=== PATIENT | female | born 1955 | race Caucasian/White ===

== ENCOUNTER 2020-05-30 14:14 | Inpatient (IN) | payer MEDICAID ==
[2020-05-30] MEDS ORDERED: Sodium Chloride 0.9% 1,000 ML IV SCH ×2 (15:50→16:15)
[2020-05-30] MEDS ORDERED: Potassium Chloride 20 MEQ in Premix Bag 1 BAG IV ONE ×3 (16:00→22:00)
[2020-05-30] MEDS: Nicotine 14 MG/24 Hr Patch TRDERM SCH (16:42)
[2020-05-30] MEDS ORDERED: Sodium Chloride 0.9% with KCl 1,000 ML IV SCH ×2 (16:50→23:50)
[2020-05-30] MEDS ORDERED: Sodium Chloride 0.9% 250 ML IV SCH (18:30)
[2020-05-30] MEDS: atorvaSTATin 40 MG Tab PO SCH (20:11)
[2020-05-31] MEDS: Multivitamins with Minerals/Iron/Folic Acid/Lycopene Tab PO SCH (08:25)
[2020-05-31] MEDS: Omeprazole 20 MG Cap.CR PO SCH (08:25)
[2020-05-31 08:27] LABS: ANION GAP 8.7 mmol/L (5-15)
--- NOTE | 2020-05-31 08:43 | PCM.PN ---
- General Info Date of Service: 05/31/20 Functional Status: Reports: Pain Controlled, Tolerating Diet, Urinating, New Symptoms. Denies: Ambulating - Review of Systems General: Reports: Weakness, Fatigue. Denies: Malaise, Chills, Night Sweats HEENT: Reports: No Symptoms Pulmonary: Denies: Shortness of Breath, Cough, Sputum Cardiovascular: Denies: Chest Pain, Orthopnea, PND Gastrointestinal: Denies: Abdominal Pain, Constipation, Decreased Appetite Genitourinary: Reports: Frequency. Denies: Dysuria, Incontinence, Retention, Flank Pain Musculoskeletal: Reports: No Symptoms Skin: Reports: Bruising Neurological: Reports: Pre-Existing Deficit, Difficulty Walking, Weakness. Denies: Confusion, Numbness, Tingling, Trouble Speaking Psychiatric: Denies: Confusion - Patient Data Vitals - Most Recent: Last Vital Signs Temp 98.1 F 05/31/20 06:04 Pulse 76 05/31/20 06:04 Resp 18 05/31/20 06:04 BP 106/66 05/31/20 06:04 Pulse Ox 96 05/31/20 06:04 Weight - Most Recent: 150 lb 9.211 oz I&O - Last 24 Hours: Intake & Output 05/30/20 05/31/20 05/31/20 22:59 06:59 14:59 Intake Total 1640 696 Output Total 600 800 Balance 1040 -104 Lab Results Last 24 Hours: Laboratory Results - last 24 hr 05/30/20 05/30/20 05/30/20 Range/Units 14:05 15:23 15:23 WBC (5.00-10.00) 10^3/uL RBC (3.80-5.50) 10^6/uL Hgb (12.0-16.0) g/dL Hct (37.0-47.0) % MCV (82.0-92.0) fL MCH (27.0-31.0) pg MCHC (32.0-36.0) g/dL RDW (11.5-14.5) % Plt Count (150-400) 10^3/uL MPV (7.4-10.4) fL Immature Gran % (Auto) (0.0-5.0) % Neut % (Auto) (50.0-70.0) % Lymph % (Auto) (20.0-40.0) % [place] % (Auto) (2.0-8.0) % Eos % (Auto) (1.0-3.0) % Baso % (Auto) (0.0-1.0) % Neut # (Auto) (2.50-7.00) 10^3/uL Lymph # (Auto) (1.00-4.00) 10^3/uL [place] # (Auto) (0.10-0.80) 10^3/uL Eos # (Auto) (0.10-0.30) 10^3/uL Baso # (Auto) (0.00-0.10) 10^3/uL Immature Gran # (Auto) (0.00-0.50) 10^3/uL Sodium (136-145) mmol/L Potassium (3.3-5.3) mmol/L Chloride (98-115) mmol/L Carbon Dioxide (21.0-32.0) mmol/L Anion Gap (5-15) mmol/L BUN (6-25) mg/dL Creatinine (0.51-1.17) mg/dL Est Cr Clr Drug Dosing mL/min Estimated GFR (MDRD) mL/min Glucose (75 - 99) mg/dL Lactic Acid (0.4-2.0) mmol/L Calcium (8.7-10.3) mg/dL Phosphorus (2.6-4.7) mg/dL Magnesium (1.8-2.4) mg/dL Total Bilirubin (0.2-1.0) mg/dL AST (15-37) U/L ALT (12-78) U/L Alkaline Phosphatase (46-116) IU/L Troponin I 0.05 (0.00-0.070) ng/mL Total Protein (6.4-8.2) g/dL Albumin (3.00-4.80) g/dL TSH, Ultra Sensitive 0.890 (0.340-4.820) uIU/mL Ur Random Sodium (40.0-220.0) mmol/L SARS CoV-2 RNA Rapid [facility] Negative (NEGATIVE) 05/30/20 05/30/20 05/31/20 Range/Units 15:57 17:40 07:58 WBC 5.94 (5.00-10.00) 10^3/uL RBC 3.90 (3.80-5.50) 10^6/uL Hgb 12.8 (12.0-16.0) g/dL Hct 36.7 L (37.0-47.0) % MCV 94.1 H (82.0-92.0) fL MCH 32.8 H (27.0-31.0) pg MCHC 34.9 (32.0-36.0) g/dL RDW 13.3 (11.5-14.5) % Plt Count 259 (150-400) 10^3/uL MPV 8.8 (7.4-10.4) fL Immature Gran % (Auto) 0.3 (0.0-5.0) % Neut % (Auto) 58.2 (50.0-70.0) % Lymph % (Auto) 22.7 (20.0-40.0) % [place] % (Auto) 18.0 H (2.0-8.0) % Eos % (Auto) 0.5 L (1.0-3.0) % Baso % (Auto) 0.3 (0.0-1.0) % Neut # (Auto) 3.45 (2.50-7.00) 10^3/uL Lymph # (Auto) 1.35 (1.00-4.00) 10^3/uL [place] # (Auto) 1.07 H (0.10-0.80) 10^3/uL Eos # (Auto) 0.03 L (0.10-0.30) 10^3/uL Baso # (Auto) 0.02 (0.00-0.10) 10^3/uL Immature Gran # (Auto) 0.02 (0.00-0.50) 10^3/uL Sodium (136-145) mmol/L Potassium (3.3-5.3) mmol/L Chloride (98-115) mmol/L Carbon Dioxide (21.0-32.0) mmol/L Anion Gap (5-15) mmol/L BUN (6-25) mg/dL Creatinine (0.51-1.17) mg/dL Est Cr Clr Drug Dosing mL/min Estimated GFR (MDRD) mL/min Glucose (75 - 99) mg/dL Lactic Acid 1.4 (0.4-2.0) mmol/L Calcium (8.7-10.3) mg/dL Phosphorus (2.6-4.7) mg/dL Magnesium (1.8-2.4) mg/dL Total Bilirubin (0.2-1.0) mg/dL AST (15-37) U/L ALT (12-78) U/L Alkaline Phosphatase (46-116) IU/L Troponin I (0.00-0.070) ng/mL Total Protein (6.4-8.2) g/dL Albumin (3.00-4.80) g/dL TSH, Ultra Sensitive (0.340-4.820) uIU/mL Ur Random Sodium 40.0 (40.0-220.0) mmol/L SARS CoV-2 RNA Rapid FAITH (NEGATIVE) 05/31/20 Range/Units 07:58 WBC (5.00-10.00) 10^3/uL RBC (3.80-5.50) 10^6/uL Hgb (12.0-16.0) g/dL Hct (37.0-47.0) % MCV (82.0-92.0) fL MCH (27.0-31.0) pg MCHC (32.0-36.0) g/dL RDW (11.5-14.5) % Plt Count (150-400) 10^3/uL MPV (7.4-10.4) fL Immature Gran % (Auto) (0.0-5.0) % Neut % (Auto) (50.0-70.0) % Lymph % (Auto) (20.0-40.0) % [place] % (Auto) (2.0-8.0) % Eos % (Auto) (1.0-3.0) % Baso % (Auto) (0.0-1.0) % Neut # (Auto) (2.50-7.00) 10^3/uL Lymph # (Auto) (1.00-4.00) 10^3/uL [place] # (Auto) (0.10-0.80) 10^3/uL Eos # (Auto) (0.10-0.30) 10^3/uL Baso # (Auto) (0.00-0.10) 10^3/uL Immature Gran # (Auto) (0.00-0.50) 10^3/uL Sodium 127 L (136-145) mmol/L Potassium 3.6 (3.3-5.3) mmol/L Chloride 91 L (98-115) mmol/L Carbon Dioxide 30.9 (21.0-32.0) mmol/L Anion Gap 8.7 (5-15) mmol/L BUN 22 (6-25) mg/dL Creatinine 1.25 H (0.51-1.17) mg/dL Est Cr Clr Drug Dosing 38.11 mL/min Estimated GFR (MDRD) 43 mL/min Glucose 119 H (75 - 99) mg/dL Lactic Acid (0.4-2.0) mmol/L Calcium 8.8 (8.7-10.3) mg/dL Phosphorus 1.5 L (2.6-4.7) mg/dL Magnesium 1.8 (1.8-2.4) mg/dL Total Bilirubin 0.6 (0.2-1.0) mg/dL AST 32 (15-37) U/L ALT 20 (12-78) U/L Alkaline Phosphatase 45 L (46-116) IU/L Troponin I (0.00-0.070) ng/mL Total Protein 6.6 (6.4-8.2) g/dL Albumin 3.15 (3.00-4.80) g/dL TSH, Ultra Sensitive (0.340-4.820) uIU/mL Ur Random Sodium (40.0-220.0) mmol/L SARS CoV-2 RNA Rapid FAITH (NEGATIVE) Med Orders - Current: Current Medications Acetaminophen (Tylenol Extra Strength) 500 mg PO Q4H PRN PRN Reason: Pain Atorvastatin Calcium (Lipitor) 40 mg PO BEDTIME [facility] Last Admin: 05/30/20 20:11 Dose: 40 mg Documented by: Sodium Chloride (Normal Saline) 1,000 mls @ 500 mls/hr IV .BOLUS [facility] Last Admin: 05/30/20 16:07 Dose: 500 mls/hr Documented by: Potassium Chloride/Sodium Chloride (Normal Saline With 40 Meq Kcl) 1,000 mls @ 100 mls/hr IV ASDIRECTED [facility] Last Admin: 12/08/20 23:29 Dose: 100 mls/hr Documented by: Sodium Chloride (Normal Saline) 250 mls @ 50 mls/hr IV ASDIRECTED [facility] Last Admin: 05/30/20 18:55 Dose: 50 mls/hr Documented by: Multivitamins/Minerals (Centrum) 1 tab PO DAILY [facility] Last Admin: 05/31/20 08:25 Dose: 1 tab Documented by: Nicotine (Habitrol) 14 mg TRDERM DAILY@1600 [facility] Last Admin: 05/30/20 16:42 Dose: 14 mg Documented by: Omeprazole (Omeprazole) 20 mg PO DAILY [facility] Last Admin: 05/31/20 08:25 Dose: 20 mg Documented by: Discontinued Medications Sodium Chloride (Normal Saline) 1,000 mls @ 500 mls/hr IV .BOLUS [facility] Potassium Chloride/Sodium Chloride (Normal Saline With 40 Meq Kcl) 1,000 mls @ 100 mls/hr IV ASDIRECTED [facility] Potassium Chloride 20 meq/ (Premix) 100 mls @ 50 mls/hr IV ONETIME ONE Stop: 05/30/20 17:59 Last Admin: 05/30/20 16:07 Dose: 50 mls/hr Documented by: Potassium Chloride 20 meq/ (Premix) 100 mls @ 50 mls/hr IV ONETIME ONE Stop: 05/30/20 20:59 Last Admin: 05/30/20 18:54 Dose: 50 mls/hr Documented by: Potassium Chloride 20 meq/ (Premix) 100 mls @ 50 mls/hr IV ONETIME ONE Stop: 05/30/20 23:59 Last Admin: 05/30/20 21:17 Dose: 50 mls/hr Documented by: - Exam Quality Assessment: No: Supplemental Oxygen General: Alert, Oriented, Cooperative HEENT: Pupils Equal Neck: Supple Lungs: Clear to Auscultation, Normal Respiratory Effort Cardiovascular: Regular Rate, Regular Rhythm GI/Abdominal Exam: Soft, No Distention (Female) Exam: Deferred Back Exam: No: CVA Tenderness (L), CVA Tenderness (R) Extremities: No Pedal Edema, Normal Capillary Refill Peripheral Pulses: 2+: Radial (L), Radial (R) Skin: Dry Neurological: No New Focal Deficit, Normal Speech, Normal Tone Psy/Mental Status: Alert, Normal Mood, Labile Mood Sepsis Event Note - Evaluation Sepsis Screening Result: No Definite Risk - Focused Exam Vital Signs: Vital Signs Temp Pulse Resp BP Pulse Ox 05/31/20 06:04 98.1 F 76 18 106/66 96 05/31/20 02:00 97.8 F 58 L 20 90/56 L 97 05/30/20 22:20 98.9 F 61 18 82/46 L 98 - Problem List Review Problem List Initiated/Reviewed/Updated: Yes - Plan Plan:: HPI summary: Pat is a 64-year-old female that was admitted yesterday into telemetry status due to significant electrolyte disturbance and weakness. This author had seen Sheila 2 days ago when she came in from [facility] for UTI and was placed on Bactrim at that time she felt weak some gait disturbance in which electrolytes demonstrated the following day of sodium 122 potassium 2.4 prompting further evaluation. She was seen and evaluated yesterday May 30 with significant hypokalemia, hyponatremia, dehydration along with weakness. Patient does have a history of EtOH abuse Primary hospital problems --Hypokalemia, much improved, continue to replete, change to PO --Hyponatremia, hypotonic, suspect hypovolemia induced --Hypophosphatemia, assess vitamin D --UTI, rocephin --Dehydration, improving, reduce IV fluids and change to isotonic saline, encourage p.o. fluids today, BP improving --Tobacco/EtOH dependency, non-contemplation phase of change, NRT Chronic problems T2DM, holding Metformin secondary to HAFSA, dehydration, acute illness Hypertension, holding thiazide diuretic and ACEI due to dehydration, hypotension, recent HAFSA, dehydration Hyperlipidemia, statin Depression, stable, holding SSRI 2/2 QTc 574 ms GERD, PPI Disposition/overall plan --Patient meets ongoing inpatient qualification due to medication adjustment, IV fluids,, monitoring --DVT prophylaxis, LMWH until ambulation, TEDS --DC tele --Rocephin for UTI --Assess vitamin D, --Reduce IV fluids --PT consultation --Add MVI, folate --Influenza vaccination
[2020-05-31] MEDS: Sodium Chloride 0.9% 1,000 ML IV SCH (09:20)
[2020-05-31] MEDS: cefTRIAXone 1 GM Vial IVPUSH SCH (09:25)
[2020-05-31] MEDS: Potassium Bicarbonate 25 MEQ Tab.EFF PO SCH (10:08)
[2020-05-31] MEDS: Enoxaparin 40 MG/0.4 ML Syringe SUBCUT SCH (10:37)
[2020-05-31] MEDS: Nicotine 14 MG/24 Hr Patch TRDERM SCH (15:43)
[2020-05-31] MEDS ORDERED: Potassium Chloride 20 MEQ Tab.ER PO ONE (17:00)
[2020-05-31] MEDS: atorvaSTATin 40 MG Tab PO SCH (20:09)
[2020-05-31] MEDS: Acetaminophen 500 MG Tab PO PRN (21:38)
[2020-06-01] MEDS: Sodium Chloride 0.9% 1,000 ML IV SCH (00:32)
[2020-06-01 08:06] LABS: ANION GAP 9.5 mmol/L (5-15); CHLORIDE,CL 100 mmol/L (98-115); SODIUM,NA 134 mmol/L (136-145)
[2020-06-01] MEDS: Multivitamins with Minerals/Iron/Folic Acid/Lycopene Tab PO SCH (08:17)
[2020-06-01] MEDS: Omeprazole 20 MG Cap.CR PO SCH (08:17)
[2020-06-01] MEDS: cefTRIAXone 1 GM Vial IVPUSH SCH (08:18)
[2020-06-01] MEDS: Potassium Bicarbonate 25 MEQ Tab.EFF PO SCH (08:18)
[2020-06-01] MEDS: Enoxaparin 40 MG/0.4 ML Syringe SUBCUT SCH (10:02)
--- NOTE | 2020-06-01 10:48 | PCM.PN ---
- General Info Date of Service: 06/01/20 Functional Status: Reports: Pain Controlled, Tolerating Diet, Ambulating (Doing better with ambulation minimal assistance only now) - Review of Systems General: Denies: Weakness, Fatigue, Malaise HEENT: Reports: No Symptoms Pulmonary: Reports: Cough. Denies: Sputum Cardiovascular: Reports: No Symptoms Gastrointestinal: Reports: No Symptoms Genitourinary: Denies: Frequency, Burning, Pain, Retention Musculoskeletal: Reports: No Symptoms Skin: Denies: Dryness Neurological: Reports: Difficulty Walking, Gait Disturbance Psychiatric: Reports: No Symptoms - Patient Data Vitals - Most Recent: Last Vital Signs Temp 98.4 F 06/01/20 06:30 Pulse 60 06/01/20 06:30 Resp 20 06/01/20 06:30 BP 104/61 06/01/20 06:30 Pulse Ox 96 06/01/20 06:30 Weight - Most Recent: 150 lb 9.211 oz I&O - Last 24 Hours: Intake & Output 05/31/20 06/01/20 06/01/20 22:59 06:59 14:59 Intake Total 1023 662 Output Total 400 Balance 1023 262 Lab Results Last 24 Hours: Laboratory Results - last 24 hr 05/30/20 05/31/20 05/31/20 Range/Units 17:25 07:58 07:58 Sodium (136-145) mmol/L Potassium (3.3-5.3) mmol/L Chloride (98-115) mmol/L Carbon Dioxide (21.0-32.0) mmol/L Anion Gap (5-15) mmol/L BUN (6-25) mg/dL Creatinine (0.51-1.17) mg/dL Est Cr Clr Drug Dosing mL/min Estimated GFR (MDRD) mL/min Glucose (75 - 99) mg/dL Serum Osmolality 269 L (275-295) mosm/kg Calcium (8.7-10.3) mg/dL Vitamin D 25-Hydroxy 14 L (30-100) ng/mL Urine Osmolality 259 L (300-900) mosm/kg 06/01/20 Range/Units 07:38 Sodium 134 L (136-145) mmol/L Potassium 3.6 (3.3-5.3) mmol/L Chloride 100 (98-115) mmol/L Carbon Dioxide 28.1 (21.0-32.0) mmol/L Anion Gap 9.5 (5-15) mmol/L BUN 15 (6-25) mg/dL Creatinine 0.82 (0.51-1.17) mg/dL Est Cr Clr Drug Dosing 58.09 mL/min Estimated GFR (MDRD) > 60 mL/min Glucose 109 H (75 - 99) mg/dL Serum Osmolality (275-295) mosm/kg Calcium 7.5 L (8.7-10.3) mg/dL Vitamin D 25-Hydroxy (30-100) ng/mL Urine Osmolality (300-900) mosm/kg Med Orders - Current: Current Medications Acetaminophen (Tylenol Extra Strength) 500 mg PO Q4H PRN PRN Reason: Pain Last Admin: 05/31/20 21:38 Dose: 500 mg Documented by: Atorvastatin Calcium (Lipitor) 40 mg PO BEDTIME [facility] Last Admin: 05/31/20 20:09 Dose: 40 mg Documented by: Ceftriaxone Sodium (Rocephin) 1 gm IVPUSH Q24H [facility] Last Admin: 06/01/20 08:18 Dose: 1 gm Documented by: Enoxaparin Sodium (Lovenox) 40 mg SUBCUT Q24H [facility] Last Admin: 06/01/20 10:02 Dose: 40 mg Documented by: Sodium Chloride (Normal Saline) 1,000 mls @ 75 mls/hr IV ASDIRECTED [facility] Last Admin: 06/01/20 00:32 Dose: 75 mls/hr Documented by: Multivitamins/Minerals (Centrum) 1 tab PO DAILY [facility] Last Admin: 06/01/20 08:17 Dose: 1 tab Documented by: Nicotine (Habitrol) 14 mg TRDERM DAILY@1600 [facility] Last Admin: 05/31/20 15:43 Dose: 14 mg Documented by: Omeprazole (Omeprazole) 20 mg PO DAILY [facility] Last Admin: 06/01/20 08:17 Dose: 20 mg Documented by: Potassium Bicarbonate (Klor-Con Ef) 25 meq PO DAILY [facility] Last Admin: 06/01/20 08:18 Dose: 25 meq Documented by: Discontinued Medications Sodium Chloride (Normal Saline) 1,000 mls @ 500 mls/hr IV .BOLUS [facility] Potassium Chloride/Sodium Chloride (Normal Saline With 40 Meq Kcl) 1,000 mls @ 100 mls/hr IV ASDIRECTED [facility] Potassium Chloride 20 meq/ (Premix) 100 mls @ 50 mls/hr IV ONETIME ONE Stop: 05/30/20 17:59 Last Admin: 05/30/20 16:07 Dose: 50 mls/hr Documented by: Potassium Chloride 20 meq/ (Premix) 100 mls @ 50 mls/hr IV ONETIME ONE Stop: 05/30/20 20:59 Last Admin: 05/30/20 18:54 Dose: 50 mls/hr Documented by: Potassium Chloride 20 meq/ (Premix) 100 mls @ 50 mls/hr IV ONETIME ONE Stop: 05/30/20 23:59 Last Admin: 05/30/20 21:17 Dose: 50 mls/hr Documented by: Sodium Chloride (Normal Saline) 1,000 mls @ 500 mls/hr IV .BOLUS [facility] Last Admin: 05/30/20 16:07 Dose: 500 mls/hr Documented by: Potassium Chloride/Sodium Chloride (Normal Saline With 40 Meq Kcl) 1,000 mls @ 100 mls/hr IV ASDIRECTED [facility] Last Admin: 05/30/20 23:29 Dose: 100 mls/hr Documented by: Sodium Chloride (Normal Saline) 250 mls @ 50 mls/hr IV ASDIRECTED [facility] Last Admin: 05/30/20 18:55 Dose: 50 mls/hr Documented by: Potassium Chloride (Klor-Con M20) 40 meq PO ONETIME ONE Stop: 05/31/20 17:01 Last Admin: 05/31/20 16:50 Dose: 40 meq Documented by: - Exam Quality Assessment: DVT Prophylaxis. No: Supplemental Oxygen General: Alert, Oriented Neck: Supple Lungs: Clear to Auscultation, Normal Respiratory Effort Cardiovascular: Regular Rate, Regular Rhythm GI/Abdominal Exam: Soft, Non-Tender Back Exam: No: CVA Tenderness (L), CVA Tenderness (R) Extremities: No Pedal Edema Peripheral Pulses: 2+: Radial (R), Femoral (L) Skin: Warm, Dry, Intact Neurological: Normal Speech, Normal Tone, Sensation Intact Sepsis Event Note - Evaluation Sepsis Screening Result: No Definite Risk - Focused Exam Vital Signs: Vital Signs Temp Pulse Resp BP Pulse Ox 06/01/20 06:30 98.4 F 60 20 104/61 96 05/31/20 23:00 98.2 F 65 16 95/53 L 97 - Problem List Review Problem List Initiated/Reviewed/Updated: Yes - My Orders Last 24 Hours: My Active Orders 05/31/20 09:45 Potassium Bicarbonate [Klor-Con EF] 25 meq PO DAILY 05/31/20 10:30 Enoxaparin [Lovenox] 40 mg SUBCUT Q24H - Plan Plan:: HPI summary: Pat is a 64-year-old female that was admitted yesterday into telemetry status due to significant electrolyte disturbance and weakness. This author had seen Sheila 2 days ago when she came in from [id number] for UTI and was placed on Bactrim at that time she felt weak some gait disturbance in which electrolytes demonstrated the following day of sodium 122 potassium 2.4 prompting further evaluation. She was seen and evaluated yesterday May 30 with significant hypokalemia, hyponatremia, dehydration along with weakness. Patient does have a history of EtOH abuse Hospital course 06/01/2020; is feeling much better, no fevers, low but improving blood pressure, euvolemic, potassium improved to normal parameters due to improved diet, along with oral and IV supplementation, phosphorus levels low--likely due to very low vitamin D levels, suspect lower GI malabsorption due to EtOH abuse. No infection, sodium levels vastly improved without mental status sequela Primary hospital problems --Vitamin D deficiency, oral supplementation --Hypokalemia, normalized, gentle p.o. supplementation for now --Hyponatremia, hypotonic, improved--suspect hypovolemia induced --Hypophosphatemia, likely related to vitamin D deficiency --UTI, being symptoms, will continue with rocephin --Dehydration, resolved, saline lock IV, BP improving --Tobacco/EtOH dependency, non-contemplation phase of change, NRT Chronic problems T2DM, holding Metformin secondary to HAFSA, dehydration, acute illness Hypertension, holding thiazide diuretic and ACEI due to dehydration, hypotension, recent HAFSA, dehydration Hyperlipidemia, statin Depression, stable, holding SSRI 2/2 QTc 574 ms GERD, PPI Disposition/overall plan --Patient meets ongoing inpatient qualification due to further monitoring, PT evaluation, weekly home discharge tomorrow --DVT prophylaxis, LMWH until ambulation, TEDS --Cont Rocephin for UTI --Add vitamin D with calcium --Saline lock IV --Added MVI, folate --Influenza vaccination, today
[2020-06-01] MEDS: Calcium Carbonate 600 MG Tab PO SCH ×2 (11:35→17:14)
[2020-06-01] MEDS: Nicotine 14 MG/24 Hr Patch TRDERM SCH (15:10)
[2020-06-01] MEDS: Acetaminophen 500 MG Tab PO PRN ×2 (15:13→20:25)
[2020-06-01] MEDS: atorvaSTATin 40 MG Tab PO SCH (20:24)
[2020-06-02] MEDS: Acetaminophen 500 MG Tab PO PRN (06:27)
[2020-06-02] MEDS: Multivitamins with Minerals/Iron/Folic Acid/Lycopene Tab PO SCH (08:29)
[2020-06-02] MEDS: Potassium Bicarbonate 25 MEQ Tab.EFF PO SCH (08:29)
[2020-06-02] MEDS: cefTRIAXone 1 GM Vial IVPUSH SCH (08:29)
[2020-06-02] MEDS: Calcium Carbonate 600 MG Tab PO SCH ×2 (08:30→11:02)
[2020-06-02] MEDS: Omeprazole 20 MG Cap.CR PO SCH (08:30)
[2020-06-02] MEDS: Enoxaparin 40 MG/0.4 ML Syringe SUBCUT SCH (10:09)
--- NOTE | 2020-06-02 11:24 | PCM.DCSUM1 ---
Discharge Summary - Hospital Course Diagnosis: Stroke: No - Discharge Data Discharge Date: 06/02/20 Discharge Disposition: Home, Self-Care 01 Condition: Good - Referral to Home Health Primary Care Physician: Mariel Chakraborty PA-C - Patient Summary/Data Consults: Consultations 05/31/20 09:04 PT Evaluation and Treatment [CONS] Routine - Patient Instructions Diet: Usual Diet as Tolerated, Drink 8-10+ Glasses/Day Driving: Do Not Drive Showering/Bathing: May Shower Notify Provider of: Fever, Nausea and/or Vomiting Other/Special Instructions: Report any further weakness. Abstain from alcohol. Take your vitamin D and calcium as directed. Stay well-hydrated. Not take your blood pressure medicines until follow-up (chlorothiazide, quinapril). Your potassium as directed normally - Discharge Plan *PRESCRIPTION DRUG MONITORING PROGRAM REVIEWED*: Not Applicable *COPY OF PRESCRIPTION DRUG MONITORING REPORT IN PATIENT BASILIO: Not Applicable Prescriptions/Med Rec: Calcium Carbonate 600 mg PO TIDMEALS #90 tablet Home Medications: Home Meds Acetaminophen [Tylenol Extra Strength] 500 mg PO Q4H PRN 05/30/20 [History] Citalopram [Citalopram HBr] 20 mg PO DAILY 05/30/20 [History] FA/Lycopene/Lut/MV,Ca,Iron,Min [Centrum] 1 tab PO DAILY 05/30/20 [History] Omeprazole 20 mg PO DAILY 05/30/20 [History] Omeprazole 20 mg PO DAILY PRN 05/30/20 [History] Potassium Chloride [K-Tab ER] 10 meq PO BID 05/30/20 [History] Quinapril/Hydrochlorothiazide [Quinapril-Hctz 10-12.5 mg Tab] 1 each PO DAILY 05/30/20 [History] atorvaSTATin [Lipitor] 40 mg PO BEDTIME 05/30/20 [History] hydroCHLOROthiazide [Hydrochlorothiazide] 12.5 mg PO DAILY 05/30/20 [History] metFORMIN [Glucophage XR] 500 mg PO DAILY 05/30/20 [History] Calcium Carbonate 600 mg PO TIDMEALS #90 tablet 06/02/20 [Rx] Referrals: Mariel Chakraborty PA-C [Primary Care Provider] - (next week anytime) - Discharge Summary/Plan Comment DC Time >30 min.: Yes Discharge Summary/Plan Comment: Final Dx --Vitamin D deficiency, suspect lower GI malabsorption due to EtOH abuse. --Hypokalemia, normalized, suspect lower GI malabsorption due to EtOH abuse. --Hyponatremia, hypotonic, improved --Hypophosphatemia, related to vitamin D deficiency --UTI, resolved --Dehydration, resolved, --Tobacco/EtOH dependency, Chronic problems T2DM, holding Metformin secondary to HAFSA, dehydration, acute illness Hypertension, holding thiazide diuretic and ACEI due to dehydration, hypotension, recent HAFSA, dehydration Hyperlipidemia, statin Depression, stable, holding SSRI 2/ QTc 574 ms GERD, PPI HPI summary: Pat is a 64-year-old female that was admitted yesterday into telemetry status due to significant electrolyte disturbance and weakness. This author had seen Sheila 2 days ago when she came in from [facility] for UTI and was placed on Bactrim at that time she felt weak some gait disturbance in which electrolytes demonstrated the following day of sodium 122 potassium 2.4 prompting further evaluation. She was seen and evaluated yesterday May 30 with significant hypokalemia, hyponatremia, dehydration along with weakness. Patient does have a history of EtOH abuse Hospital course 06/01/2020; is feeling much better, no fevers, low but improving blood pressure, euvolemic, potassium improved to normal parameters due to improved diet, along with oral and IV supplementation, phosphorus levels low--likely due to very low vitamin D levels, suspect lower GI malabsorption due to EtOH abuse. No infection, sodium levels vastly improved without mental status sequela Medication changes/adjustments upon discharge Vitamin D 50,000 IU every Friday x2 months newly added Calcium carbonate 600 mg p.o. 3 times daily newly added Holding SSRI due to prolongation QT Disposition --DC to home --F/u with up with MAYUR Lau 09 June at 12:30 Patient instructions upon discharge --Report any further weakness --Abstain from alcohol --Take your vitamin D and calcium as directed --Stay well-hydrated --Not take your blood pressure medicines until follow-up (chlorothiazide, quinapril) --Take your potassium as directed normally Recommendations upon follow-up --holding SSRI due to QTc 574 ms, please address --Re-addressing EtOH abstinence --CMP --Flu Shot - General Info Functional Status: Reports: Pain Controlled - Review of Systems General: Denies: Fever, Weakness, Fatigue, Malaise, Chills HEENT: Reports: No Symptoms Pulmonary: Reports: No Symptoms Cardiovascular: Reports: No Symptoms Gastrointestinal: Reports: No Symptoms Genitourinary: Reports: No Symptoms Musculoskeletal: Reports: Shoulder Pain (Shoulder pain past 2 days) Skin: Denies: Bruising, Pruritis Neurological: Denies: Confusion, Dizziness, Weakness Psychiatric: Reports: No Symptoms - Patient Data Vitals - Most Recent: Last Vital Signs Temp 97.9 F 06/02/20 06:17 Pulse 63 06/02/20 06:17 Resp 16 06/02/20 06:17 BP 149/63 H 06/02/20 06:17 Pulse Ox 98 06/02/20 06:17 Weight - Most Recent: 150 lb 9.211 oz I&O - Last 24 hours: Intake & Output 06/01/20 06/02/20 06/02/20 22:59 06:59 14:59 Intake Total 240 200 Balance 240 200 Med Orders - Current: Current Medications Acetaminophen (Tylenol Extra Strength) 500 mg PO Q4H PRN PRN Reason: Pain Last Admin: 06/02/20 06:27 Dose: 500 mg Documented by: Atorvastatin Calcium (Lipitor) 40 mg PO BEDTIME [facility] Last Admin: 06/01/20 20:24 Dose: 40 mg Documented by: Calcium Carbonate/Glycine (Calcium Carbonate) 600 mg PO TIDMEALS [facility] Last Admin: 06/02/20 11:02 Dose: 600 mg Documented by: Ceftriaxone Sodium (Rocephin) 1 gm IVPUSH Q24H [facility] Last Admin: 06/02/20 08:29 Dose: 1 gm Documented by: Enoxaparin Sodium (Lovenox) 40 mg SUBCUT Q24H [facility] Last Admin: 06/02/20 10:09 Dose: 40 mg Documented by: Multivitamins/Minerals (Centrum) 1 tab PO DAILY [facility] Last Admin: 06/02/20 08:29 Dose: 1 tab Documented by: Nicotine (Habitrol) 14 mg TRDERM DAILY@1600 [facility] Last Admin: 06/01/20 15:10 Dose: 14 mg Documented by: Omeprazole (Omeprazole) 20 mg PO DAILY [facility] Last Admin: 06/02/20 08:30 Dose: 20 mg Documented by: Potassium Bicarbonate (Klor-Con Ef) 25 meq PO DAILY [facility] Last Admin: 06/02/20 08:29 Dose: 25 meq Documented by: Discontinued Medications Sodium Chloride (Normal Saline) 1,000 mls @ 500 mls/hr IV .BOLUS [facility]STIAN Potassium Chloride/Sodium Chloride (Normal Saline With 40 Meq Kcl) 1,000 mls @ 100 mls/hr IV ASDIRECTED [facility] Potassium Chloride 20 meq/ (Premix) 100 mls @ 50 mls/hr IV ONETIME ONE Stop: 05/30/20 17:59 Last Admin: 05/30/20 16:07 Dose: 50 mls/hr Documented by: Potassium Chloride 20 meq/ (Premix) 100 mls @ 50 mls/hr IV ONETIME ONE Stop: 05/30/20 20:59 Last Admin: 05/30/20 18:54 Dose: 50 mls/hr Documented by: Potassium Chloride 20 meq/ (Premix) 100 mls @ 50 mls/hr IV ONETIME ONE Stop: 05/30/20 23:59 Last Admin: 05/30/20 21:17 Dose: 50 mls/hr Documented by: Sodium Chloride (Normal Saline) 1,000 mls @ 500 mls/hr IV .BOLUS [facility]IAN Last Admin: 05/30/20 16:07 Dose: 500 mls/hr Documented by: Potassium Chloride/Sodium Chloride (Normal Saline With 40 Meq Kcl) 1,000 mls @ 100 mls/hr IV ASDIRECTED [facility] Last Admin: 05/30/20 23:29 Dose: 100 mls/hr Documented by: Sodium Chloride (Normal Saline) 250 mls @ 50 mls/hr IV ASDIRECTED [facility] Last Admin: 05/30/20 18:55 Dose: 50 mls/hr Documented by: Sodium Chloride (Normal Saline) 1,000 mls @ 75 mls/hr IV ASDIRECTED [facility] Last Admin: 06/01/20 00:32 Dose: 75 mls/hr Documented by: Potassium Chloride (Klor-Con M20) 40 meq PO ONETIME ONE Stop: 05/31/20 17:01 Last Admin: 05/31/20 16:50 Dose: 40 meq Documented by: - Exam Quality Assessment: Denies: Supplemental Oxygen General: Reports: Alert, Oriented Neck: Reports: Supple Lungs: Reports: Clear to Auscultation, Normal Respiratory Effort Cardiovascular: Reports: Regular Rate, Regular Rhythm Extremities: Other (Right shoulder tenderness AC, normal range of motion) Skin: Reports: Warm, Dry, Intact Neurological: Reports: Normal Gait, Normal Speech, Normal Tone Psy/Mental Status: Reports: Alert, Normal Affect, Normal Mood
== END 2020-06-02 13:30 | disposition home or self-care (01) | DRG 683 ==
LOC: KA.LAB 14:14 → KA.MS 15:05 → UNDOADMIN 15:05 → KA.MS 15:29
PROVIDERS: ADMIT Nurse Practitioner Family; ATTEND Family Medicine
DX: N17.9 Acute kidney failure, unspecified (principal); E87.1 Hypo-osmolality and hyponatremia; N39.0 Urinary tract infection, site not specified; E87.6 Hypokalemia; E83.39 Other disorders of phosphorus metabolism; E55.9 Vitamin D deficiency, unspecified; E86.0 Dehydration; F10.20 Alcohol dependence, uncomplicated; E78.5 Hyperlipidemia, unspecified; F17.210 Nicotine dependence, cigarettes, uncomplicated; T50.2X5A Adverse effect of carbonic-anhydrase inhibitors, benzothiadiazides and other diuretics, initial encounter; F32.9 Major depressive disorder, single episode, unspecified; K21.9 Gastro-esophageal reflux disease without esophagitis; I10 Essential (primary) hypertension; I95.9 Hypotension, unspecified; I45.81 Long QT syndrome; E87.8 Other disorders of electrolyte and fluid balance, not elsewhere classified; Z20.828 Contact with and (suspected) exposure to other viral communicable diseases; Z79.899 Other long term (current) drug therapy; Z79.84 Long term (current) use of oral hypoglycemic drugs
CPT/HCPCS: 36415; 80048; 80053; 82306; 83605; 83735; 83930; 83935; 84100; 84300; 84443; 84484; 85025; 97161-GP; A9270-GY; J0696; J1650; J3480; J7030; J7050; U0002

== ENCOUNTER 2021-01-01 17:15 | Observation (INO) | payer MEDICAID ==
[2021-01-01] MEDS ORDERED: Sodium Chloride 0.9% 10 ML Syringe FLUSH PRN (17:35)
[2021-01-01] MEDS ORDERED: HYDROmorphone 1 MG/ML Syringe IVPUSH PRN (17:39)
[2021-01-01] MEDS ORDERED: Sodium Chloride 0.9% 1,000 ML IV SCH (17:45)
[2021-01-01] MEDS ORDERED: 50% Dextrose in Water 50 ML Syringe IVPUSH PRN (18:02)
[2021-01-01] MEDS ORDERED: Glucagon,Human Recombinant 1 MG Vial IM PRN (18:02)
[2021-01-01] MEDS: Insulin Aspart 100 Units/ML 3 ML Pen SUBCUT SCH ×2 (18:09→21:26)
[2021-01-01] MEDS: Sodium Chloride 0.9% 1,000 ML IV SCH ×2 (18:10→19:16)
[2021-01-01] MEDS: Ondansetron 4 MG/2 ML SDV IVPUSH PRN (21:26)
[2021-01-02] MEDS: Sodium Chloride 0.9% 1,000 ML IV SCH ×4 (02:02→22:10)
[2021-01-02 08:23] LABS: SODIUM,NA 142 mmol/L (136-145)
[2021-01-02] MEDS: Insulin Aspart 100 Units/ML 3 ML Pen SUBCUT SCH ×4 (08:35→21:44)
[2021-01-02] MEDS: Ondansetron 4 MG/2 ML SDV IVPUSH PRN (08:38)
[2021-01-02 08:42] LABS: ANION GAP 13.8 mmol/L (5-15); CHLORIDE,CL 103 mmol/L (98-107)
--- NOTE | 2021-01-02 10:52 | PCM.PN ---
- General Info Date of Service: 01/02/21 Functional Status: Reports: Pain Controlled, Tolerating Diet, Urinating. Denies: New Symptoms - Review of Systems General: Reports: No Symptoms HEENT: Reports: No Symptoms Pulmonary: Reports: No Symptoms Cardiovascular: Reports: No Symptoms Gastrointestinal: Reports: Nausea, Vomiting (one emesis this morning). Denies: Abdominal Pain Genitourinary: Reports: No Symptoms Musculoskeletal: Reports: No Symptoms Skin: Reports: No Symptoms Neurological: Reports: No Symptoms Psychiatric: Reports: No Symptoms - Patient Data Vitals - Most Recent: Last Vital Signs Temp 98.9 F 01/02/21 06:15 Pulse 71 01/02/21 02:07 Resp 16 01/02/21 06:15 BP 145/72 H 01/02/21 06:15 Pulse Ox 92 L 01/02/21 06:15 Weight - Most Recent: 176 lb 14.4 oz I&O - Last 24 Hours: Intake & Output 01/01/21 01/02/21 01/02/21 22:59 06:59 14:59 Intake Total 1525 1097 Output Total 550 Balance 975 1097 Lab Results Last 24 Hours: Laboratory Results - last 24 hr 01/01/21 01/01/21 01/01/21 Range/Units 17:25 18:01 21:23 WBC (5.00-10.00) 10^3/uL RBC (3.80-5.50) 10^6/uL Hgb (12.0-16.0) g/dL Hct (37.0-47.0) % MCV (82.0-92.0) fL MCH (27.0-31.0) pg MCHC (32.0-36.0) g/dL RDW (11.5-14.5) % Plt Count (150-400) 10^3/uL MPV (7.4-10.4) fL Immature Gran % (Auto) (0.0-5.0) % Neut % (Auto) (50.0-70.0) % Lymph % (Auto) (20.0-40.0) % [place] % (Auto) (2.0-8.0) % Eos % (Auto) (1.0-3.0) % Baso % (Auto) (0.0-1.0) % Neut # (Auto) (2.50-7.00) 10^3/uL Lymph # (Auto) (1.00-4.00) 10^3/uL [place] # (Auto) (0.10-0.80) 10^3/uL Eos # (Auto) (0.10-0.30) 10^3/uL Baso # (Auto) (0.00-0.10) 10^3/uL Immature Gran # (Auto) (0.00-0.50) 10^3/uL Sodium (136-145) mmol/L Potassium (3.5-5.1) mmol/L Chloride (98-107) mmol/L Carbon Dioxide (21.0-32.0) mmol/L Anion Gap (5-15) mmol/L BUN (7-18) mg/dL Creatinine (0.51-1.17) mg/dL Est Cr Clr Drug Dosing mL/min Estimated GFR (MDRD) mL/min Glucose (70-140) mg/dL POC Glucose 129 139 (70-140) mg/dL Calcium (8.7-10.3) mg/dL Magnesium (1.8-2.4) mg/dL Total Bilirubin (0.2-1.0) mg/dL AST (15-37) U/L ALT (14-63) U/L Alkaline Phosphatase (46-116) U/L Total Protein (6.4-8.2) g/dL Albumin (3.40-5.00) g/dL Lipase (73-393) U/L SARS CoV-2 RNA Rapid FAITH Negative (NEGATIVE) 01/02/21 01/02/21 01/02/21 Range/Units 07:33 07:50 07:50 WBC 8.17 (5.00-10.00) 10^3/uL RBC 3.92 (3.80-5.50) 10^6/uL Hgb 12.7 (12.0-16.0) g/dL Hct 38.8 (37.0-47.0) % MCV 99.0 H D (82.0-92.0) fL MCH 32.4 H (27.0-31.0) pg MCHC 32.7 (32.0-36.0) g/dL RDW 14.0 (11.5-14.5) % Plt Count 222 (150-400) 10^3/uL MPV 9.2 (7.4-10.4) fL Immature Gran % (Auto) 0.1 (0.0-5.0) % Neut % (Auto) 62.3 (50.0-70.0) % Lymph % (Auto) 25.8 (20.0-40.0) % [place] % (Auto) 10.5 H (2.0-8.0) % Eos % (Auto) 1.1 (1.0-3.0) % Baso % (Auto) 0.2 (0.0-1.0) % Neut # (Auto) 5.08 (2.50-7.00) 10^3/uL Lymph # (Auto) 2.11 (1.00-4.00) 10^3/uL [place] # (Auto) 0.86 H (0.10-0.80) 10^3/uL Eos # (Auto) 0.09 L (0.10-0.30) 10^3/uL Baso # (Auto) 0.02 (0.00-0.10) 10^3/uL Immature Gran # (Auto) 0.01 (0.00-0.50) 10^3/uL Sodium 142 (136-145) mmol/L Potassium 3.0 L (3.5-5.1) mmol/L Chloride 103 (98-107) mmol/L Carbon Dioxide 28.2 (21.0-32.0) mmol/L Anion Gap 13.8 (5-15) mmol/L BUN 4 L (7-18) mg/dL Creatinine 0.55 (0.51-1.17) mg/dL Est Cr Clr Drug Dosing 89.23 mL/min Estimated GFR (MDRD) > 60 mL/min Glucose 141 H (70-140) mg/dL POC Glucose 132 (70-140) mg/dL Calcium 7.7 L (8.7-10.3) mg/dL Magnesium 1.5 L (1.8-2.4) mg/dL Total Bilirubin 0.8 (0.2-1.0) mg/dL AST 38 H (15-37) U/L ALT 42 (14-63) U/L Alkaline Phosphatase 50 (46-116) U/L Total Protein 6.5 (6.4-8.2) g/dL Albumin 2.94 L (3.40-5.00) g/dL Lipase (73-393) U/L SARS CoV-2 RNA Rapid FAITH (NEGATIVE) 01/02/21 Range/Units 07:50 WBC (5.00-10.00) 10^3/uL RBC (3.80-5.50) 10^6/uL Hgb (12.0-16.0) g/dL Hct (37.0-47.0) % MCV (82.0-92.0) fL MCH (27.0-31.0) pg MCHC (32.0-36.0) g/dL RDW (11.5-14.5) % Plt Count (150-400) 10^3/uL MPV (7.4-10.4) fL Immature Gran % (Auto) (0.0-5.0) % Neut % (Auto) (50.0-70.0) % Lymph % (Auto) (20.0-40.0) % [place] % (Auto) (2.0-8.0) % Eos % (Auto) (1.0-3.0) % Baso % (Auto) (0.0-1.0) % Neut # (Auto) (2.50-7.00) 10^3/uL Lymph # (Auto) (1.00-4.00) 10^3/uL [place] # (Auto) (0.10-0.80) 10^3/uL Eos # (Auto) (0.10-0.30) 10^3/uL Baso # (Auto) (0.00-0.10) 10^3/uL Immature Gran # (Auto) (0.00-0.50) 10^3/uL Sodium (136-145) mmol/L Potassium (3.5-5.1) mmol/L Chloride (98-107) mmol/L Carbon Dioxide (21.0-32.0) mmol/L Anion Gap (5-15) mmol/L BUN (7-18) mg/dL Creatinine (0.51-1.17) mg/dL Est Cr Clr Drug Dosing mL/min Estimated GFR (MDRD) mL/min Glucose (70-140) mg/dL POC Glucose (70-140) mg/dL Calcium (8.7-10.3) mg/dL Magnesium (1.8-2.4) mg/dL Total Bilirubin (0.2-1.0) mg/dL AST (15-37) U/L ALT (14-63) U/L Alkaline Phosphatase (46-116) U/L Total Protein (6.4-8.2) g/dL Albumin (3.40-5.00) g/dL Lipase 392 (73-393) U/L SARS CoV-2 RNA Rapid FAITH (NEGATIVE) Med Orders - Current: Current Medications Dextrose/Water (50% Dextrose In Water 50 Ml Syringe) 50 ml IVPUSH ASDIRECTED PRN PRN Reason: Hypoglycemia Glucagon (Glucagon,Human Recombinant 1 Mg Vial) 1 mg IM ASDIRECTED PRN PRN Reason: Hypoglycemia Hydromorphone HCl (Hydromorphone 1 Mg/Ml Syringe) 0.5 mg IVPUSH Q2H PRN PRN Reason: Pain Sodium Chloride (Normal Saline) 1,000 mls @ 999 mls/hr IV .BOLUS [facility]RISTIAN Last Admin: 01/01/21 18:13 Dose: 999 mls/hr Documented by: Sodium Chloride (Normal Saline) 1,000 mls @ 150 mls/hr IV ASDIRECTED CHRISTIAN Last Admin: 01/02/21 08:42 Dose: 150 mls/hr Documented by: Insulin Aspart (Insulin Aspart 100 Units/Ml 3 Ml Pen) 0 unit SUBCUT WITHMEALSANDBED CHRISTIAN; Protocol Last Admin: 01/02/21 08:35 Dose: Not Given Documented by: Magnesium Oxide (Magnesium Oxide 500 Mg Tab) 500 mg PO DAILY [facility] Ondansetron HCl (Ondansetron 4 Mg/2 Ml Sdv) 4 mg IVPUSH Q6H PRN PRN Reason: Nausea/Vomiting Last Admin: 01/02/21 08:38 Dose: 4 mg Documented by: Potassium Chloride (Potassium Chloride 20 Meq Tab.Er) 20 meq PO ONETIME ONE Stop: 01/02/21 12:01 Potassium Chloride (Potassium Chloride 10 Meq Tab.Er) 20 meq PO ONETIME ONE Stop: 01/02/21 11:01 Potassium Chloride (Potassium Chloride 20 Meq Tab.Er) 20 meq PO ONETIME ONE Stop: 01/02/21 13:01 Sodium Chloride (Sodium Chloride 0.9% 10 Ml Syringe) 10 ml FLUSH Q8HR PRN PRN Reason: keep vein open Last Admin: 01/01/21 21:26 Dose: 10 ml Documented by: - Exam Quality Assessment: No: Supplemental Oxygen General: Alert, Oriented, Cooperative, No Acute Distress HEENT: Pupils Equal, Pupils Reactive, Mucous Membr. Moist/[place] Neck: Supple Lungs: Normal Respiratory Effort, Decreased Breath Sounds. No: Crackles, Rales, Wheezing Cardiovascular: Regular Rate, Regular Rhythm, No Murmurs GI/Abdominal Exam: Normal Bowel Sounds, Soft, Non-Tender, No Distention (Female) Exam: Deferred Back Exam: Normal Inspection, Full Range of Motion Extremities: Normal Inspection, Normal Range of Motion, Non-Tender, Normal Capillary Refill, Pedal Edema (trace edema to RLE) Peripheral Pulses: 2+: Dorsalis Pedis (L), Dorsalis Pedis (R) Skin: Warm, Dry, Intact Neurological: No New Focal Deficit Psy/Mental Status: Alert, Normal Affect, Normal Mood - Patient Data Lab Results Last 24 hrs: Laboratory Results - last 24 hr 01/01/21 01/01/21 01/01/21 Range/Units 17:25 18:01 21:23 WBC (5.00-10.00) 10^3/uL RBC (3.80-5.50) 10^6/uL Hgb (12.0-16.0) g/dL Hct (37.0-47.0) % MCV (82.0-92.0) fL MCH (27.0-31.0) pg MCHC (32.0-36.0) g/dL RDW (11.5-14.5) % Plt Count (150-400) 10^3/uL MPV (7.4-10.4) fL Immature Gran % (Auto) (0.0-5.0) % Neut % (Auto) (50.0-70.0) % Lymph % (Auto) (20.0-40.0) % [place] % (Auto) (2.0-8.0) % Eos % (Auto) (1.0-3.0) % Baso % (Auto) (0.0-1.0) % Neut # (Auto) (2.50-7.00) 10^3/uL Lymph # (Auto) (1.00-4.00) 10^3/uL [place] # (Auto) (0.10-0.80) 10^3/uL Eos # (Auto) (0.10-0.30) 10^3/uL Baso # (Auto) (0.00-0.10) 10^3/uL Immature Gran # (Auto) (0.00-0.50) 10^3/uL Sodium (136-145) mmol/L Potassium (3.5-5.1) mmol/L Chloride (98-107) mmol/L Carbon Dioxide (21.0-32.0) mmol/L Anion Gap (5-15) mmol/L BUN (7-18) mg/dL Creatinine (0.51-1.17) mg/dL Est Cr Clr Drug Dosing mL/min Estimated GFR (MDRD) mL/min Glucose (70-140) mg/dL POC Glucose 129 139 (70-140) mg/dL Calcium (8.7-10.3) mg/dL Magnesium (1.8-2.4) mg/dL Total Bilirubin (0.2-1.0) mg/dL AST (15-37) U/L ALT (14-63) U/L Alkaline Phosphatase (46-116) U/L Total Protein (6.4-8.2) g/dL Albumin (3.40-5.00) g/dL Lipase (73-393) U/L SARS CoV-2 RNA Rapid FAITH Negative (NEGATIVE) 01/02/21 01/02/21 01/02/21 Range/Units 07:33 07:50 07:50 WBC 8.17 (5.00-10.00) 10^3/uL RBC 3.92 (3.80-5.50) 10^6/uL Hgb 12.7 (12.0-16.0) g/dL Hct 38.8 (37.0-47.0) % MCV 99.0 H D (82.0-92.0) fL MCH 32.4 H (27.0-31.0) pg MCHC 32.7 (32.0-36.0) g/dL RDW 14.0 (11.5-14.5) % Plt Count 222 (150-400) 10^3/uL MPV 9.2 (7.4-10.4) fL Immature Gran % (Auto) 0.1 (0.0-5.0) % Neut % (Auto) 62.3 (50.0-70.0) % Lymph % (Auto) 25.8 (20.0-40.0) % [place] % (Auto) 10.5 H (2.0-8.0) % Eos % (Auto) 1.1 (1.0-3.0) % Baso % (Auto) 0.2 (0.0-1.0) % Neut # (Auto) 5.08 (2.50-7.00) 10^3/uL Lymph # (Auto) 2.11 (1.00-4.00) 10^3/uL [place] # (Auto) 0.86 H (0.10-0.80) 10^3/uL Eos # (Auto) 0.09 L (0.10-0.30) 10^3/uL Baso # (Auto) 0.02 (0.00-0.10) 10^3/uL Immature Gran # (Auto) 0.01 (0.00-0.50) 10^3/uL Sodium 142 (136-145) mmol/L Potassium 3.0 L (3.5-5.1) mmol/L Chloride 103 (98-107) mmol/L Carbon Dioxide 28.2 (21.0-32.0) mmol/L Anion Gap 13.8 (5-15) mmol/L BUN 4 L (7-18) mg/dL Creatinine 0.55 (0.51-1.17) mg/dL Est Cr Clr Drug Dosing 89.23 mL/min Estimated GFR (MDRD) > 60 mL/min Glucose 141 H (70-140) mg/dL POC Glucose 132 (70-140) mg/dL Calcium 7.7 L (8.7-10.3) mg/dL Magnesium 1.5 L (1.8-2.4) mg/dL Total Bilirubin 0.8 (0.2-1.0) mg/dL AST 38 H (15-37) U/L ALT 42 (14-63) U/L Alkaline Phosphatase 50 (46-116) U/L Total Protein 6.5 (6.4-8.2) g/dL Albumin 2.94 L (3.40-5.00) g/dL Lipase (73-393) U/L SARS CoV-2 RNA Rapid FAITH (NEGATIVE) 01/02/21 Range/Units 07:50 WBC (5.00-10.00) 10^3/uL RBC (3.80-5.50) 10^6/uL Hgb (12.0-16.0) g/dL Hct (37.0-47.0) % MCV (82.0-92.0) fL MCH (27.0-31.0) pg MCHC (32.0-36.0) g/dL RDW (11.5-14.5) % Plt Count (150-400) 10^3/uL MPV (7.4-10.4) fL Immature Gran % (Auto) (0.0-5.0) % Neut % (Auto) (50.0-70.0) % Lymph % (Auto) (20.0-40.0) % [place] % (Auto) (2.0-8.0) % Eos % (Auto) (1.0-3.0) % Baso % (Auto) (0.0-1.0) % Neut # (Auto) (2.50-7.00) 10^3/uL Lymph # (Auto) (1.00-4.00) 10^3/uL [place] # (Auto) (0.10-0.80) 10^3/uL Eos # (Auto) (0.10-0.30) 10^3/uL Baso # (Auto) (0.00-0.10) 10^3/uL Immature Gran # (Auto) (0.00-0.50) 10^3/uL Sodium (136-145) mmol/L Potassium (3.5-5.1) mmol/L Chloride (98-107) mmol/L Carbon Dioxide (21.0-32.0) mmol/L Anion Gap (5-15) mmol/L BUN (7-18) mg/dL Creatinine (0.51-1.17) mg/dL Est Cr Clr Drug Dosing mL/min Estimated GFR (MDRD) mL/min Glucose (70-140) mg/dL POC Glucose (70-140) mg/dL Calcium (8.7-10.3) mg/dL Magnesium (1.8-2.4) mg/dL Total Bilirubin (0.2-1.0) mg/dL AST (15-37) U/L ALT (14-63) U/L Alkaline Phosphatase (46-116) U/L Total Protein (6.4-8.2) g/dL Albumin (3.40-5.00) g/dL Lipase 392 (73-393) U/L SARS CoV-2 RNA Rapid FAITH (NEGATIVE) Result Diagrams: 01/03/21 07:40 01/03/21 07:40 Sepsis Event Note - Evaluation Sepsis Screening Result: No Definite Risk - Focused Exam Vital Signs: Vital Signs Temp Pulse Resp BP Pulse Ox 01/02/21 06:15 98.9 F 16 145/72 H 92 L 01/02/21 02:07 98.6 F 71 20 135/76 95 - Problem List Review Problem List Initiated/Reviewed/Updated: Yes - My Orders Last 24 Hours: My Active Orders 01/02/21 10:45 Magnesium Oxide 500 mg PO DAILY 01/02/21 11:00 Potassium Chloride [Klor-Con 10] 20 meq PO ONETIME ONE 01/02/21 12:00 Potassium Chloride [Klor-Con M20] 20 meq PO ONETIME ONE 01/02/21 13:00 Potassium Chloride [Klor-Con M20] 20 meq PO ONETIME ONE 01/03/21 05:11 CBC WITH AUTO DIFF [HEME] AM CMP [COMPREHENSIVE METABOLIC PN,CMP] [CHEM] AM LIPASE [CHEM] AM MAGNESIUM [CHEM] AM - Plan Plan:: HPI summary: Patient presented to the [facility] yesterday and was evaluated by Eli Farrell APRN, NUTRITIONAL SERVICES DIRECTOR for complaints of right lower extremity swelling, generalized abdominal pain and overall feeling ill. Patient endorsed recent increase in ETOH consumption after the of her ex- in early November. His celebration of life was held this past weekend. Three day hx of abdominal pain with intermittent diarrhea and vomiting on Friday. She has had decreased appetite and fatigue over the weekend. Abdominal tenderness on exam in clinic. Patient was directed to [facility] for LE US to R/O DVT due to leg swelling which was negative for DVT bilaterally. Labs were obtained with mild leukocytosis WBC 11.2, CMP with stable renal function, normal K of 3.9, AST 54, Mg 1.6, lipase 236. Patient was admitted on observation status to [facility] for IV fluids and further monitoring. Home medications on hold. Initial IVF bolus of 1L NS given followed by basal rate of 150ml/hr. Hydromorphone 0.5 mg IV every 2 hours as needed for pain. Zofran 4 mg IV every 6 hours as needed for nausea and vomiting. Blood glucose monitoring before every meal and daily at bedtime with low intensity sliding scale insulin. Labs in the a.m. Hospital course: 01/02/21: Patient reports improvement of abdominal pain this morning. She has not required the dilaudid. She did have 1 emesis this am with zofran given. She denies any new symptoms. Significant improvement of lower extremity edema this morning with residual trace edema to the RLE. Abdomen soft, non-tender to palpation; bowel sounds normal. WBC improved this morning 8.17, K 3.0, Ca 7.7, Mg 1.5, AST improved to 38, repeated lipase with result increased to 392, will correlate to clinical course. Hospitalization problems and plan: # Acute pancreatitis - Continue clear liquids for lunch today due to emesis this morning, ADAT - Continue IVF at 150ml/hr - Repeat CBC, CMP, Mg in am # Diabetes mellitus - Type 2 - Continue to hold metformin - BS x 4 with low dose ssi for coverage # Hypokalemia - K 3.0 this am - Replace with KCl 20mEq X 3 doses PO - Recheck in am. # Hypomagnesemia - Mg 1.5 this am - Start Mag oxide 500mg PO daily - Recheck Mg in am. Chronic, stable conditions: # Hypertension; stable. No current medications # Hyperlipidemia; stable. Atorvastatin on hold. # GERD - prilosec 20mg PO daily # Depression - stable, home medication of celexa on hold Hospitalization details: # FEN: NS 150ml/hr, electrolytes as above, clear liquid diet - ADAT # PPX: None. # Code status: FULL # Disposition: Will continue observation status until tomorrow to allow for additional IV hydration and improvement in clinical status, advancement of diet.
[2021-01-02] MEDS ORDERED: Potassium Chloride 10 MEQ Tab.ER PO ONE (11:00)
[2021-01-02] MEDS: Magnesium Oxide 500 MG Tab PO SCH (11:20)
[2021-01-02] MEDS ORDERED: Potassium Chloride 20 MEQ Tab.ER PO ONE ×2 (12:00→13:00)
[2021-01-03] MEDS: Sodium Chloride 0.9% 1,000 ML IV SCH (05:19)
[2021-01-03] MEDS: Insulin Aspart 100 Units/ML 3 ML Pen SUBCUT SCH (07:49)
[2021-01-03] MEDS: Magnesium Oxide 500 MG Tab PO SCH (08:19)
[2021-01-03 08:28] LABS: ANION GAP 10.8 mmol/L (5-15); CHLORIDE,CL 107 mmol/L (98-107); SODIUM,NA 144 mmol/L (136-145)
--- NOTE | 2021-01-03 09:31 | PCM.DCSUM1 ---
Discharge Summary - Hospital Course Free Text/Narrative:: Date of admission: 01/01/21 Date of discharge: 01/03/21 Admission diagnoses: # Acute pancreatitis - Continue clear liquids for lunch today due to emesis this morning, ADAT - Continue IVF at 150ml/hr - Repeat CBC, CMP, Mg in am # Diabetes mellitus - Type 2 - Continue to hold metformin - BS x 4 with low dose ssi for coverage # Hypokalemia - K 3.0 this am - Replace with KCl 20mEq X 3 doses PO - Recheck in am. # Hypomagnesemia - Mg 1.5 this am - Start Mag oxide 500mg PO daily - Recheck Mg in am. Discharge diagnoses: # Hypertension; stable. No current medications # Hyperlipidemia; stable. Atorvastatin on hold. # GERD - # Depression - stable, home medication of celexa on hold HPI: Patient presented to the [facility] clinic yesterday and was evaluated by Eli Farrell APRN, DHRUV for complaints of right lower extremity swelling, generalized abdominal pain and overall feeling ill. Patient endorsed recent increase in ETOH consumption after the of her ex- in early November. His celebration of life was held this past weekend. Three day hx of abdominal pain with intermittent diarrhea and vomiting on Friday. She has had decreased appetite and fatigue over the weekend. Abdominal tenderness on exam in clinic. Patient was directed to [facility] for LE US to R/O DVT due to leg swelling which was negative for DVT bilaterally. Labs were obtained with mild leukocytosis WBC 11.2, CMP with stable renal function, normal K of 3.9, AST 54, Mg 1.6, lipase 236. Patient was admitted on observation status to for IV fluids and further monitoring. Home medications on hold. Initial IVF bolus of 1L NS given followed by basal rate of 150ml/hr. Hydromorphone 0.5 mg IV every 2 hours as needed for pain. Zofran 4 mg IV every 6 hours as needed for nausea and vomiting. Blood glucose monitoring before every meal and daily at bedtime with low intensity sliding scale insulin. Labs in the a.m. Hospital course: 01/02/21: Patient reports improvement of abdominal pain this morning. She has not required the dilaudid. She did have 1 emesis this am with zofran given. She denies any new symptoms. Significant improvement of lower extremity edema this morning with residual trace edema to the RLE. Abdomen soft, non-tender to palpation; bowel sounds normal. WBC improved this morning 8.17, K 3.0, Ca 7.7, Mg 1.5, AST improved to 38, repeated lipase with result increased to 392, will correlate to clinical course. 01/03/21: Discharge and follow-up recommendations: - Discharge to home per self care - New medications at discharge: Magnesium Oxide 500mg PO daily - Follow-up on Friday01/08/21 at [facility] with Harpreet Sam APRN, CNP - Discharge Data Discharge Date: 01/03/21 Discharge Disposition: Home, Self-Care 01 Condition: Good - Referral to Home Health Primary Care Physician: Eli Farrell NP - Patient Instructions Diet: No Alcoholic Beverages Diet, Other: low fat, soft diet Driving: May Drive Today Showering/Bathing: May Shower Notify Provider of: Nausea and/or Vomiting - Discharge Plan *PRESCRIPTION DRUG MONITORING PROGRAM REVIEWED*: Not Applicable *COPY OF PRESCRIPTION DRUG MONITORING REPORT IN PATIENT BASILIO: Not Applicable Prescriptions/Med Rec: Magnesium Oxide 500 mg PO DAILY #30 tablet Home Medications: Home Meds Acetaminophen [Tylenol Extra Strength] 500 mg PO Q4H PRN 05/30/20 [History] Citalopram [Citalopram HBr] 20 mg PO DAILY 05/30/20 [History] FA/Lycopene/Lut/MV,Ca,Iron,Min [Centrum] 1 tab PO DAILY 05/30/20 [History] Omeprazole 20 mg PO DAILY 05/30/20 [History] Potassium Chloride [K-Tab ER] 10 meq PO BID 05/30/20 [History] atorvaSTATin [Lipitor] 40 mg PO BEDTIME 05/30/20 [History] metFORMIN [Glucophage XR] 500 mg PO DAILY 05/30/20 [History] Calcium Carbonate/Vitamin D3 [Calcium 600-Vit D3 400 Tablet] 1 tab PO TID 01/01/21 [History] Magnesium Oxide 500 mg PO DAILY #30 tablet 01/03/21 [Rx] Oxygen Therapy Mode: Room Air Referrals: Harpreet Sam BL[employer] OPERATOR [Nurse Practitioner] - Eli Farrell NP [Primary Care Provider] - 01/08/21 2:00 pm (Follow up at [facility] with Harpreet Sam. ) - Discharge Summary/Plan Comment DC Time >30 min.: Yes - General Info Date of Service: 01/03/21 Functional Status: Reports: Pain Controlled, Tolerating Diet. Denies: New Symptoms - Review of Systems General: Reports: No Symptoms HEENT: Reports: No Symptoms Pulmonary: Reports: No Symptoms Cardiovascular: Reports: No Symptoms Gastrointestinal: Reports: No Symptoms. Denies: Abdominal Pain, Diarrhea, Nausea, Vomiting Genitourinary: Reports: No Symptoms Musculoskeletal: Reports: No Symptoms Skin: Reports: No Symptoms Neurological: Reports: No Symptoms Psychiatric: Reports: No Symptoms - Patient Data Vitals - Most Recent: Last Vital Signs Temp 97.0 F 01/03/21 05:29 Pulse 62 01/03/21 05:29 Resp 18 01/03/21 05:29 BP 142/61 H 01/03/21 05:29 Pulse Ox 97 01/03/21 05:29 Weight - Most Recent: 176 lb 14.4 oz I&O - Last 24 hours: Intake & Output 01/02/21 01/03/21 01/03/21 22:59 06:59 14:59 Intake Total 2406 1530 Balance 2406 1530 Lab Results - Last 24 hrs: Laboratory Results - last 24 hr 01/02/21 01/02/21 01/02/21 Range/Units 07:50 11:17 17:33 WBC (5.00-10.00) 10^3/uL RBC (3.80-5.50) 10^6/uL Hgb (12.0-16.0) g/dL Hct (37.0-47.0) % MCV (82.0-92.0) fL MCH (27.0-31.0) pg MCHC (32.0-36.0) g/dL RDW (11.5-14.5) % Plt Count (150-400) 10^3/uL MPV (7.4-10.4) fL Immature Gran % (Auto) (0.0-5.0) % Neut % (Auto) (50.0-70.0) % Lymph % (Auto) (20.0-40.0) % [place] % (Auto) (2.0-8.0) % Eos % (Auto) (1.0-3.0) % Baso % (Auto) (0.0-1.0) % Neut # (Auto) (2.50-7.00) 10^3/uL Lymph # (Auto) (1.00-4.00) 10^3/uL [place] # (Auto) (0.10-0.80) 10^3/uL Eos # (Auto) (0.10-0.30) 10^3/uL Baso # (Auto) (0.00-0.10) 10^3/uL Immature Gran # (Auto) (0.00-0.50) 10^3/uL Sodium (136-145) mmol/L Potassium (3.5-5.1) mmol/L Chloride (98-107) mmol/L Carbon Dioxide (21.0-32.0) mmol/L Anion Gap (5-15) mmol/L BUN (7-18) mg/dL Creatinine (0.51-1.17) mg/dL Est Cr Clr Drug Dosing mL/min Estimated GFR (MDRD) mL/min Glucose (70-140) mg/dL POC Glucose 111 107 (70-140) mg/dL Calcium (8.7-10.3) mg/dL Magnesium (1.8-2.4) mg/dL Total Bilirubin (0.2-1.0) mg/dL AST (15-37) U/L ALT (14-63) U/L Alkaline Phosphatase (46-116) U/L Total Protein (6.4-8.2) g/dL Albumin (3.40-5.00) g/dL Lipase 392 (73-393) U/L 01/03/21 01/03/21 Range/Units 07:40 07:40 WBC 7.89 (5.00-10.00) 10^3/uL RBC 3.72 L (3.80-5.50) 10^6/uL Hgb 12.2 (12.0-16.0) g/dL Hct 37.5 (37.0-47.0) % MCV 100.8 H (82.0-92.0) fL MCH 32.8 H (27.0-31.0) pg MCHC 32.5 (32.0-36.0) g/dL RDW 14.4 (11.5-14.5) % Plt Count 203 (150-400) 10^3/uL MPV 9.8 (7.4-10.4) fL Immature Gran % (Auto) 0.4 (0.0-5.0) % Neut % (Auto) 56.6 (50.0-70.0) % Lymph % (Auto) 30.9 (20.0-40.0) % [place] % (Auto) 10.5 H (2.0-8.0) % Eos % (Auto) 1.5 (1.0-3.0) % Baso % (Auto) 0.1 (0.0-1.0) % Neut # (Auto) 4.46 (2.50-7.00) 10^3/uL Lymph # (Auto) 2.44 (1.00-4.00) 10^3/uL [place] # (Auto) 0.83 H (0.10-0.80) 10^3/uL Eos # (Auto) 0.12 (0.10-0.30) 10^3/uL Baso # (Auto) 0.01 (0.00-0.10) 10^3/uL Immature Gran # (Auto) 0.03 (0.00-0.50) 10^3/uL Sodium 144 (136-145) mmol/L Potassium 3.5 (3.5-5.1) mmol/L Chloride 107 (98-107) mmol/L Carbon Dioxide 29.7 (21.0-32.0) mmol/L Anion Gap 10.8 (5-15) mmol/L BUN 3 L (7-18) mg/dL Creatinine 0.49 L (0.51-1.17) mg/dL Est Cr Clr Drug Dosing 100.16 mL/min Estimated GFR (MDRD) > 60 mL/min Glucose 121 (70-140) mg/dL POC Glucose (70-140) mg/dL Calcium 7.8 L (8.7-10.3) mg/dL Magnesium 1.5 L (1.8-2.4) mg/dL Total Bilirubin 0.6 (0.2-1.0) mg/dL AST 45 H (15-37) U/L ALT 44 (14-63) U/L Alkaline Phosphatase 48 (46-116) U/L Total Protein 6.3 L (6.4-8.2) g/dL Albumin 2.88 L (3.40-5.00) g/dL Lipase (73-393) U/L Med Orders - Current: Current Medications Dextrose/Water (50% Dextrose In Water 50 Ml Syringe) 50 ml IVPUSH ASDIRECTED PRN PRN Reason: Hypoglycemia Glucagon (Glucagon,Human Recombinant 1 Mg Vial) 1 mg IM ASDIRECTED PRN PRN Reason: Hypoglycemia Hydromorphone HCl (Hydromorphone 1 Mg/Ml Syringe) 0.5 mg IVPUSH Q2H PRN PRN Reason: Pain Sodium Chloride (Normal Saline) 1,000 mls @ 999 mls/hr IV .BOLUS [facility] Last Admin: 01/01/21 18:13 Dose: 999 mls/hr Documented by: Sodium Chloride (Normal Saline) 1,000 mls @ 150 mls/hr IV ASDIRECTED [facility] Last Admin: 01/03/21 05:19 Dose: 150 mls/hr Documented by: Insulin Aspart (Insulin Aspart 100 Units/Ml 3 Ml Pen) 0 unit SUBCUT WITHMEALSANDBED [facility]; Protocol Last Admin: 01/03/21 07:49 Dose: Not Given Documented by: Magnesium Oxide (Magnesium Oxide 500 Mg Tab) 500 mg PO DAILY [facility] Last Admin: 01/03/21 08:19 Dose: 500 mg Documented by: Ondansetron HCl (Ondansetron 4 Mg/2 Ml Sdv) 4 mg IVPUSH Q6H PRN PRN Reason: Nausea/Vomiting Last Admin: 01/02/21 08:38 Dose: 4 mg Documented by: Sodium Chloride (Sodium Chloride 0.9% 10 Ml Syringe) 10 ml FLUSH Q8HR PRN PRN Reason: keep vein open Last Admin: 01/01/21 21:26 Dose: 10 ml Documented by: Discontinued Medications Potassium Chloride (Potassium Chloride 20 Meq Tab.Er) 20 meq PO ONETIME ONE Stop: 01/02/21 12:01 Last Admin: 01/02/21 12:08 Dose: 20 meq Documented by: Potassium Chloride (Potassium Chloride 10 Meq Tab.Er) 20 meq PO ONETIME ONE Stop: 01/02/21 11:01 Last Admin: 01/02/21 11:20 Dose: 20 meq Documented by: Potassium Chloride (Potassium Chloride 20 Meq Tab.Er) 20 meq PO ONETIME ONE Stop: 01/02/21 13:01 Last Admin: 01/02/21 12:57 Dose: 20 meq Documented by: - Exam Quality Assessment: Denies: Supplemental Oxygen General: Reports: Alert, Oriented, Cooperative, No Acute Distress HEENT: Reports: Pupils Equal, Mucous Membr. Moist/[place] Neck: Reports: Supple Lungs: Reports: Clear to Auscultation, Normal Respiratory Effort Cardiovascular: Reports: Regular Rate, Regular Rhythm, No Murmurs GI/Abdominal Exam: Normal Bowel Sounds, Soft, Non-Tender, No Distention (Female) Exam: Deferred Rectal (Female) Exam: Deferred Extremities: Normal Inspection, Normal Range of Motion, Non-Tender, No Pedal Edema, Normal Capillary Refill Skin: Reports: Warm, Dry, Intact Neurological: Reports: No New Focal Deficit Psy/Mental Status: Reports: Alert, Normal Affect, Normal Mood
== END 2021-01-03 10:40 | disposition home or self-care (01) ==
LOC: KA.MS 17:15
PROVIDERS: ADMIT Nurse Practitioner Family; ATTEND Family Medicine
DX: K85.90 Acute pancreatitis without necrosis or infection, unspecified (principal); M79.89 Other specified soft tissue disorders; E11.9 Type 2 diabetes mellitus without complications; E87.6 Hypokalemia; E83.42 Hypomagnesemia; I10 Essential (primary) hypertension; E78.5 Hyperlipidemia, unspecified; K21.9 Gastro-esophageal reflux disease without esophagitis; F32.9 Major depressive disorder, single episode, unspecified; Z20.822 Contact with and (suspected) exposure to COVID-19; Z79.84 Long term (current) use of oral hypoglycemic drugs; Z79.899 Other long term (current) drug therapy
CPT/HCPCS: 36415; 80053; 82947; 83690; 83735; 85025; 96374; 96376; A9270-GY; G0378; J2405; J7030; J7040; U0002

== ENCOUNTER 2022-02-22 18:49 | Emergency (ER) | payer MEDICAID, MEDICARE ==
[2022-02-22] MEDS ORDERED: Sodium Chloride 0.9% 10 ML Syringe FLUSH PRN (19:48)
[2022-02-22] MEDS ORDERED: Sodium Chloride 0.9% 1,000 ML IV ONE (19:58)
[2022-02-22] MEDS ORDERED: HYDROmorphone 1 MG/ML Syringe IVPUSH ONE (19:58)
[2022-02-22 20:48] LABS: CHLORIDE,CL 95 mmol/L (98-107); SODIUM,NA 132 mmol/L (136-145)
[2022-02-22 20:49] LABS: ESTIMATED GFR 69 mL/min (>=60)
[2022-02-22] MEDS ORDERED: Meropenem 1 GM SDV IVPUSH ONE (21:43)
[2022-02-22] MEDS ORDERED: NS with KCl 40mEq 1,000 ML IV SCH (21:45)
[2022-02-23] MEDS ORDERED: Iopamidol 755 Mg/ML 75 ML Bottle IVPUSH ONE (07:46)
[2022-02-23] MEDS ORDERED: Sodium Chloride 0.9% 50 ML IV SCH (08:00)
== END 2022-02-23 00:28 ==
LOC: KA.ED 18:49
DX: K80.20 Calculus of gallbladder without cholecystitis without obstruction (principal); K85.10 Biliary acute pancreatitis without necrosis or infection; E87.8 Other disorders of electrolyte and fluid balance, not elsewhere classified; E78.00 Pure hypercholesterolemia, unspecified; I10 Essential (primary) hypertension; E11.9 Type 2 diabetes mellitus without complications; E87.6 Hypokalemia; E87.2 Acidosis; R74.01 Elevation of levels of liver transaminase levels; R82.2 Biliuria; D72.829 Elevated white blood cell count, unspecified; Z87.19 Personal history of other diseases of the digestive system; Z79.899 Other long term (current) drug therapy; Z79.84 Long term (current) use of oral hypoglycemic drugs; Z20.822 Contact with and (suspected) exposure to COVID-19
CPT/HCPCS: 36415; 74177; 80053; 81001; 82150; 83605; 83690; 84484; 85025; 87040; 93005; 93010; 96361; 96365; 96366; 96375; 99285; 99285-25; J1170; J2185; J3480; J3490; J7030; Q9967; U0002

== ENCOUNTER 2023-10-14 17:39 | Inpatient (IN) | payer MEDICARE, OTHER ==
[2023-10-14 18:08] LABS: BASOPHILS ABSOLUTE AUTO 0.03 10^3/uL (0.00-0.10); BASOPHILS PERCENT AUTO 0.3 % (0.0-1.0); EOSINOPHILS ABSOLUTE AUTO 0.02 10^3/uL (0.10-0.30); EOSINOPHILS PERCENT AUTO 0.2 % (1.0-3.0); HEMATOCRIT 39.6 % (37.0-47.0); HEMOGLOBIN 12.8 g/dL (12.0-16.0); IMMATURE GRAN ABSOLUTE AUTO 0.02 10^3/uL (0.00-0.50); IMMATURE GRAN PERCENT AUTO 0.2 % (0.0-5.0); LYMPHOCYTES ABSOLUTE AUTO 1.69 10^3/uL (1.00-4.00); LYMPHOCYTES PERCENT AUTO 15.5 % (20.0-40.0); MEAN CORPUSCULAR HGB CONC 32.3 g/dL (32.0-36.0); MEAN CORPUSCULAR VOLUME 111.2 fL (82.0-92.0); MEAN PLATELET VOLUME 9.4 fL (7.4-10.4); MONOCYTES ABSOLUTE AUTO 1.14 10^3/uL (0.10-0.80); MONOCYTES PERCENT AUTO 10.5 % (2.0-8.0); NEUTROPHILS PERCENT AUTO 73.3 % (50.0-70.0); PLATELET COUNT,PLT 291 10^3/uL (150-400); RED BLOOD CELL COUNT 3.56 10^6/uL (3.80-5.50)
[2023-10-14 18:25] LABS: ALANINE AMINOTRANSFERASE,ALT 35 U/L (14-63); ALBUMIN 2.72 g/dL (3.40-5.00); ALKALINE PHOSPHATASE 52 U/L (46-116); ANION GAP 15.8 mmol/L (5-15); ASPARTATE AMNIOTRANSFERASE,AST 57 U/L (15-37); BILIRUBIN TOTAL 0.4 mg/dL (0.2-1.0); BLOOD UREA NITROGEN,BUN 12 mg/dL (7-18); CALCIUM 8.2 mg/dL (8.7-10.3); CARBON DIOXIDE,CO2 24.7 mmol/L (21.0-32.0); CHLORIDE,CL 103 mmol/L (98-107); CREATININE 0.56 mg/dL (0.51-1.17); ESTIMATED GFR 101 mL/min (>=60); ETHANOL BLOOD MEDICAL 96 mg/dL (NOT DETECTED); GLUCOSE RANDOM 139 mg/dL (70-140); POTASSIUM,K 4.5 mmol/L (3.5-5.1); PROTEIN TOTAL,TP 6.3 g/dL (6.4-8.2); SODIUM,NA 139 mmol/L (136-145)
[2023-10-14 18:55] LABS: APPEARANCE,URINE TURBID (CLEAR); BILIRUBIN,URINE NEGATIVE (NEGATIVE); COLOR,URINE YELLOW (YELLOW); GLUCOSE,URINE NEGATIVE (NEGATIVE); KETONES,URINE TRACE mg/dL (NEGATIVE); LEUKOCYTE ESTERASE,URINE LARGE (NEGATIVE); NITRITE,URINE NEGATIVE (NEGATIVE); OCCULT BLOOD,URINE SMALL (NEGATIVE); PH,URINE 6.5 (5.0-9.0); PROTEIN,URINE 30 mg/dL (NEGATIVE)
[2023-10-14 19:05] LABS: BACTERIA,URINE MODERATE /HPF (NONE TO FEW); EPITHELIAL CELLS,URINE FEW /LPF; WBC,URINE >100 /HPF (0-5)
[2023-10-14 19:07] LABS: AMPHETAMINES SCREEN, URINE NEGATIVE (NEGATIVE); BARBITURATE SCREEN,URINE NEGATIVE (NEGATIVE); BENZODIAZEPINES SCREEN,URINE NEGATIVE (NEGATIVE); COCAINE METABOLITES,URINE NEGATIVE (NEGATIVE); METHADONE SCREEN, URINE NEGATIVE (NEGATIVE); METHAMPHETAMINES SCREEN, URINE NEGATIVE (NEGATIVE); OXYCODONE SCREEN,URINE NEGATIVE (NEGATIVE); PCP SCREEN,URINE NEGATIVE (NEGATIVE); TCA SCREEN,URINE NEGATIVE (NEGATIVE); THC SCREEN,URINE 50 NG/ML NEGATIVE (NEGATIVE)
[2023-10-14] MEDS ORDERED: Ondansetron 4 MG Tab.DIS PO PRN (21:53)
[2023-10-14] MEDS ORDERED: Bisacodyl 5 MG Tab PO PRN (21:53)
[2023-10-14] MEDS ORDERED: Docusate Sodium 100 MG Cap PO PRN (21:53)
[2023-10-14] MEDS: cefTRIAXone 2 GM Vial IVPUSH ONE (22:22)
[2023-10-14] MEDS: Sodium Chloride 0.9% 1,000 ML IV SCH (22:22)
[2023-10-14] MEDS: Sodium Chloride 0.9% 10 ML Syringe FLUSH PRN (22:30)
[2023-10-14] MEDS: Thiamine 200 MG/2 ML MDV IVPUSH SCH (22:49)
[2023-10-15] MEDS: Omeprazole 20 MG Cap.CR PO SCH (06:16)
[2023-10-15 08:05] LABS: BASOPHILS ABSOLUTE AUTO 0.02 10^3/uL (0.00-0.10); BASOPHILS PERCENT AUTO 0.3 % (0.0-1.0); EOSINOPHILS ABSOLUTE AUTO 0.05 10^3/uL (0.10-0.30); EOSINOPHILS PERCENT AUTO 0.6 % (1.0-3.0); HEMATOCRIT 37.3 % (37.0-47.0); HEMOGLOBIN 12.2 g/dL (12.0-16.0); IMMATURE GRAN ABSOLUTE AUTO 0.01 10^3/uL (0.00-0.50); IMMATURE GRAN PERCENT AUTO 0.1 % (0.0-5.0); LYMPHOCYTES ABSOLUTE AUTO 1.63 10^3/uL (1.00-4.00); LYMPHOCYTES PERCENT AUTO 21.1 % (20.0-40.0); MEAN CORPUSCULAR HEMOGLOBIN 36.5 pg (27.0-31.0); MEAN CORPUSCULAR HGB CONC 32.7 g/dL (32.0-36.0); MEAN CORPUSCULAR VOLUME 111.7 fL (82.0-92.0); MEAN PLATELET VOLUME 9.9 fL (7.4-10.4); NEUTROPHILS PERCENT AUTO 64.9 % (50.0-70.0); PLATELET COUNT,PLT 246 10^3/uL (150-400); RED BLOOD CELL COUNT 3.34 10^6/uL (3.80-5.50); WHITE BLOOD CELL COUNT,WBC 7.71 10^3/uL (5.00-10.00)
[2023-10-15 08:20] LABS: ALBUMIN 2.48 g/dL (3.40-5.00); ANION GAP 10.1 mmol/L (5-15); BILIRUBIN TOTAL 0.7 mg/dL (0.2-1.0); CALCIUM 7.8 mg/dL (8.7-10.3); CARBON DIOXIDE,CO2 28.7 mmol/L (21.0-32.0); CREATININE 0.56 mg/dL (0.51-1.17); EST CRCL DRUG DOSING (CG) 85.33 mL/min; POTASSIUM,K 3.8 mmol/L (3.5-5.1)
[2023-10-15] MEDS: Calcium Citrate/Vitamin D3 315 MG-250 Unit Tab PO SCH (08:54)
[2023-10-15] MEDS: Folic Acid 1 MG Tab PO SCH (08:54)
[2023-10-15] MEDS: atorvaSTATin 40 MG Tab PO SCH (08:54)
[2023-10-15] MEDS: Acetaminophen 325 MG Tab PO PRN (11:03)
[2023-10-15] MEDS: Rivaroxaban 10 MG Tab PO SCH (18:10)
[2023-10-15] MEDS: cefTRIAXone 1 GM Vial IVPUSH SCH (19:31)
[2023-10-17] MEDS: Calcium Citrate/Vitamin D3 315 MG-250 Unit Tab PO SCH (08:32)
[2023-10-17] MEDS: Cephalexin 250 MG Cap PO SCH (11:34)
== END 2023-10-20 11:52 | disposition home or self-care (01) | DRG 690 ==
LOC: KA.ED 17:39 → KA.MS 20:50
PROVIDERS: ADMIT Nurse Practitioner; ATTEND Hospitalist
DX: N30.01 Acute cystitis with hematuria (principal); N39.0 Urinary tract infection, site not specified; S32.502A Unspecified fracture of left pubis, initial encounter for closed fracture; F17.200 Nicotine dependence, unspecified, uncomplicated; E11.9 Type 2 diabetes mellitus without complications; H46.9 Unspecified optic neuritis; F10.10 Alcohol abuse, uncomplicated; Z79.899 Other long term (current) drug therapy; Z79.84 Long term (current) use of oral hypoglycemic drugs; R53.1 Weakness; H46.3 Toxic optic neuropathy; I10 Essential (primary) hypertension; E78.00 Pure hypercholesterolemia, unspecified; M19.90 Unspecified osteoarthritis, unspecified site; F32.A Depression, unspecified; E87.8 Other disorders of electrolyte and fluid balance, not elsewhere classified; B96.1 Klebsiella pneumoniae [K. pneumoniae] as the cause of diseases classified elsewhere; F17.210 Nicotine dependence, cigarettes, uncomplicated; Z79.01 Long term (current) use of anticoagulants; Z98.51 Tubal ligation status; Z90.49 Acquired absence of other specified parts of digestive tract; Z86.718 Personal history of other venous thrombosis and embolism; Z96.659 Presence of unspecified artificial knee joint; W01.0XXA Fall on same level from slipping, tripping and stumbling without subsequent striking against object, initial encounter; Z87.440 Personal history of urinary (tract) infections
CPT/HCPCS: 36415; 80053; 80305-QW; 80307; 81001; 85025; 87086; 87088; 87186; 99223-GT; 99232-GT; 99233-GT; 99239-GT; 99284; 99285; A9270-GY; J0696; J3411; J3490; J7030; Q3014